=== PATIENT | female | born 1970 | race Caucasian/White ===

== ENCOUNTER 2018-12-12 01:44 | Outpatient (CLI) | payer OTHER, SELFPAY ==
--- NOTE | 2018-12-12 10:39 | DI.MRI_ITS ---
SYMPTOMS/DIAGNOSIS: LT ANKLE JOINT PAIN, M25.572, ? CHRONIC ACHILLES TENDON TEAR MRI OF THE LEFT ANKLE: Comparison is made with plain films dated . T 1 and fat suppressed T 2 sagittal, proton density sagittal, T 1 and fat suppressed T 2 axial and coronal sequences were performed. There is thickening of the Achilles tendon proximally. There is thinning distally and show retraction of the fibers. There is high signal within the tendon sheath. Plain films showed a few small calcifications in the vicinity of the tendon. The remaining tendons appear intact. The marrow signal appears normal throughout. There is no talar dome defect. IMPRESSION: Findings are consistent with a partial Achilles tendon tear with retraction of some of the fibers. The findings could represent a subacute tear vs acute partial tear on chronic tendinosis.
== END 2018-12-12 02:04 ==
PROVIDERS: PCP Physician Assistant Medical; Visit Provider Orthopaedic Surgery
DX: M25.572 Pain in left ankle and joints of left foot (principal); S86.022A Laceration of left Achilles tendon, initial encounter
CPT/HCPCS: 73721

== ENCOUNTER 2019-09-18 02:00 | Outpatient (CLI) | payer OTHER, SELFPAY ==
--- NOTE | 2019-09-18 | DI.US_ITS ---
EXAM: US PELVIS TRANSVAGINAL CLINICAL HISTORY: CHRONIC MENORRHAGIA DESPITE IUD, EVALUATE FOR STRUCTURAL ABNL OR PCO TECHNIQUE: Ultrasound performed using standard protocol. COMPARISON: No exams were available for comparison FINDINGS: Transabdominal and transvaginal scanning was performed. The examination is technically limited due t o the patient's body habitus. Uterus is grossly normal in size and shape. There is heterogeneous ap pearance of the myometrium with question of echogenic striations, raising the possibility of adenomyo sis. The endometrium is about 9 millimeters in thickness and appears heterogeneous but avascular. There is an IUD which lies in the lower uterine segment. There are multiple small simple cysts of the left ovary, largest measuring about 2.6 cm in diameter. Otherwise the ovaries are unremarkable. No free fluid identified in the cul-de-sac. Limited scanning of the kidneys is unremarkable. IMPRESSION: IUD in lower uterine segment. Thickened heterogeneous endometrium, no focal mass identified. Poorly visualized heterogeneous myometrium, myometrial striations/shadowing may be present, this find ing may be seen in adenomyosis. Additional evaluation with MR of the pelvis may be considered if cli nically appropriate. DATA REPOSITORY:
== END 2019-09-18 02:20 ==
PROVIDERS: PCP Physician Assistant Medical; Visit Provider Obstetrics & Gynecology
DX: N92.0 Excessive and frequent menstruation with regular cycle (principal); N83.292 Other ovarian cyst, left side; Z97.5 Presence of (intrauterine) contraceptive device
CPT/HCPCS: 76830; 76856